=== PATIENT | female | born 1975 | race Caucasian/White ===

== ENCOUNTER → 2019-10-16 14:08 | Outpatient (CLI) | payer OTHER, SELFPAY ==
--- NOTE | 2019-10-16 | DI.US.S_ITS ---
PROCEDURE: US PELVIC COMPLETE INDICATIONS: LEFT LOWER QUADRANT PAIN TECHNIQUE: Real-time scanning was performed of the pelvic organs, with image documentation. Additional endovaginal scanning was necessary due to incomplete visualization of the adnexal and endometrial structures by transabdominal scanning. COMPARISON: [facility], US, PELVIC COMPLETE, 07/20/2014, 11:11. FINDINGS: Transabdominal scanning: A mild amount of free pelvic fluid is seen, which is considered to be within physiologic limits. Limited scanning through the kidneys shows no hydronephrosis. Additional, dedicated ultrasound scanning is performed at the area of left lower quadrant pain. Within this region, there is an area of non-peristalsing bowel, with mild wall thickening that measures up to 4.5 mm. Endovaginal scanning: Uterus: Uterus is normal in size at 6.7 x 4.7 4.9 cm. The endometrium measures 5 mm in combined thickness. An IUD is seen at its expected location. Ovaries: The right ovary measures 4 x 1.5 x 1.9 cm. The left ovary measures 2.9 x 1.8 x 2.5 cm, and demonstrates a simple appearing cyst measuring up to 2.1 cm, which is considered to be within physiologic limits. The ovaries have a normal sonographic appearance. No adnexal masses are seen. IMPRESSION: Prominent loop of bowel seen at the area of clinical concern. Please consider a dedicated CT with IV and oral contrast for further evaluation. A simple appearing left ovarian cyst is seen, which is considered to be within physiologic limits. IUD seen at its expected location. Dictated by: Alvino Cunningham M.D. on 10/16/2019 at 14:38 Approved by: Alvino Cunningham M.D. on 10/16/2019 at 14:40
== END ==
PROVIDERS: Referring Provider Internal Medicine; Visit Provider Internal Medicine
DX: R10.32 Left lower quadrant pain (principal); N83.202 Unspecified ovarian cyst, left side; Z97.5 Presence of (intrauterine) contraceptive device
CPT/HCPCS: 76856

== ENCOUNTER → 2019-10-24 08:52 | Outpatient (CLI) | payer OTHER, SELFPAY ==
--- NOTE | 2019-10-24 | DI.CT.S_ITS ---
PROCEDURE: CT ABDOMEN PELVIS W CON INDICATIONS: Abnormal findings on diagnostic imaging TECHNIQUE: After the administration of oral and intravenous contrast, 5 mm thick sections acquired from the diaphragms to the symphysis. 5 mm thick coronal and sagittal reformats were performed. For radiation dose reduction, the following was used: automated exposure control, adjustment of mA and/or kV according to patient size. COMPARISON: , , PELVIC COMPLETE, 10/16/2019, 14:19. FINDINGS: Image quality: Excellent. ABDOMEN: Lung bases: Lung bases are clear. Left lower lobe subpleural nodule opacity measuring 5 mm, (3/9). No pleural effusion. Heart size is normal. Solid organs: Liver appears enlarged. No focal lesion identified. Gallbladder is unremarkable. Biliary system is non-dilated. Pancreas enhances normally. Spleen is normal in size and enhancement. No adrenal nodules. Kidneys are normal in size and enhancement, without hydronephrosis. Inferior displacement of the left kidney. Enlarged right kidney extrarenal pelvis. Peritoneum and bowel: No dilated loops of bowel. The bowel in the left lower quadrant is within normal limits and appears to be similar to bowel elsewhere. The appendix is not identified. No free fluid or air. Nodes and vessels: No retroperitoneal or mesenteric adenopathy. Aorta and inferior vena cava are normal in caliber. 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 Miscellaneous: No ventral hernias. PELVIS: Genitourinary: Bladder is unremarkable. Uterus is retroverted. IUD centered in the uterine cavity. Miscellaneous: No inguinal hernias or adenopathy. Bones: No suspicious bony lesions. No vertebral body compression fractures. IMPRESSION: 1. Liver appears enlarged with inferior displacement of the right kidney. The clinical significance of this finding is uncertain. No splenomegaly. 2. No abnormality identified to explain the patient's left-sided abdominal pain. No acute inflammatory process identified. No bowel obstruction. No free fluid. 3. Incidental 5 mm nodular opacity in the left lower lobe. Dictated by: Catalino Purdy M.D. on 10/24/2019 at 10:17 Approved by: Catalino Purdy M.D. on 10/24/2019 at 10:29
== END ==
PROVIDERS: Referring Provider Internal Medicine; Visit Provider Internal Medicine
DX: R93.5 Abnormal findings on diagnostic imaging of other abdominal regions, including retroperitoneum (principal); R10.32 Left lower quadrant pain; R91.1 Solitary pulmonary nodule; Z97.5 Presence of (intrauterine) contraceptive device
CPT/HCPCS: 74177